=== PATIENT | male | born 1985 | race Caucasian/White ===

== ENCOUNTER 2022-04-07 20:59 | Emergency (ER) | payer MEDICAID ==
[2022-04-07] MEDS ORDERED: Clindamycin Palmitate Solution 75 MG/5 ML 100 ML Bottle PO STA (22:03)
== END 2022-04-07 22:45 | disposition home or self-care (01) ==
LOC: MW.ED 20:59
DX: L03.115 Cellulitis of right lower limb (principal); L73.9 Follicular disorder, unspecified; Z88.2 Allergy status to sulfonamides; Z79.899 Other long term (current) drug therapy
CPT/HCPCS: 99282; A9270; 99283

== ENCOUNTER 2022-10-15 00:29 | Emergency (ER) | payer MEDICAID ==
[2022-10-15] MEDS ORDERED: Lidocaine 1% with EPINEPHrine 1:100,000 10 ML MDV INJECT ONE (00:54)
[2022-10-15] MEDS ORDERED: Diphtheria,Pertussis(Acell),Tetanus Vaccine 0.5 ML Syringe IM ONE (00:54)
== END 2022-10-15 01:30 | disposition home or self-care (01) ==
LOC: MW.ED 00:29
DX: S41.112A Laceration without foreign body of left upper arm, initial encounter (principal); Z88.2 Allergy status to sulfonamides; Z23 Encounter for immunization; X78.1XXA Intentional self-harm by knife, initial encounter
CPT/HCPCS: 12001; 90471; 90715; 99282-25; 99283; J3490

== ENCOUNTER 2022-10-23 06:36 | Emergency (ER) | payer MEDICAID ==
[2022-10-23] MEDS ORDERED: Morphine 4 MG/ML Syringe IVPUSH STA (06:54)
[2022-10-23] MEDS ORDERED: Sodium Chloride 0.9% 1,000 ML IV SCH (07:00)
[2022-10-23 07:26] LABS: CARBON DIOXIDE,CO2 31.1 mmol/L (21.0-32.0); POTASSIUM,K 3.7 mmol/L (3.5-5.1)
== END 2022-10-23 08:44 | disposition home or self-care (01) ==
LOC: MW.ED 06:36
DX: R10.13 Epigastric pain (principal); R10.84 Generalized abdominal pain; R19.7 Diarrhea, unspecified; Z88.2 Allergy status to sulfonamides
CPT/HCPCS: 36415; 80053; 80307; 83605; 83690; 85025; 85610; 87635; 96361; 96374; 99284; J2270; J7030; U0002

== ENCOUNTER 2023-02-05 03:19 | Inpatient (IN) | payer MEDICAID ==
[2023-02-05] MEDS ORDERED: Sodium Chloride 0.9% 1,000 ML IV ONE (03:38)
[2023-02-05] MEDS ORDERED: LORazepam 2 MG/ML SDV IVPUSH ONE (03:38)
[2023-02-05] MEDS ORDERED: cefTRIAXone 1 GM in Sodium Chloride 0.9% 50 ML IV ONE ×2 (03:40→11:52)
[2023-02-05 03:44] LABS: BASOPHILS PERCENT AUTO 0.4 % (0.0-1.5); EOSINOPHILS PERCENT AUTO 0.2 % (0.0-7.0); HEMATOCRIT 40.8 % (38.0-50.0); HEMOGLOBIN 14.9 g/dL (13.0-17.0); LYMPHOCYTES ABSOLUTE AUTO 1.1 K/uL (0.6-2.4); LYMPHOCYTES PERCENT AUTO 9.8 % (16.0-40.0); MEAN CORPUSCULAR HGB CONC 36.5 g/dL (31.0-37.0); MEAN CORPUSCULAR VOLUME 90.5 fL (80.0-98.0); MONOCYTES ABSOLUTE AUTO 1.2 K/uL (0.0-0.8); MONOCYTES PERCENT AUTO 11.1 % (0.0-15.0); NEUTROPHILS ABSOLUTE AUTO 8.7 K/uL (1.4-5.7); NEUTROPHILS PERCENT AUTO 78.5 % (48.0-80.0); NRBC ABSOLUTE 0 K/uL; RED BLOOD CELL COUNT 4.51 M/uL (4.50-5.90); WHITE BLOOD CELL COUNT,WBC 11.01 K/uL (4.0-11.0)
[2023-02-05 03:52] LABS: INR 1.44 (0.86-1.11); PTT,PARTIAL THROMBOPLSTIN TIME 34.9 SEC (23.9-30.7)
[2023-02-05 04:02] LABS: A/G RATIO 0.5 (0.9-1.6); ALBUMIN 2.3 g/dL (3.4-5.0); BILIRUBIN TOTAL 4.5 mg/dL (0.2-1.0); CALCIUM 6.8 mg/dL (8.5-10.1); CARBON DIOXIDE,CO2 23.5 mmol/L (21.0-32.0); EST CRCL DRUG DOSING (CG) 102.12 mL/min; MAGNESIUM 0.8 mg/dL (1.8-2.4); POTASSIUM,K 3.1 mmol/L (3.5-5.1)
[2023-02-05] MEDS ORDERED: Magnesium Sulfate/Water 2 GM in Premix Bag 1 BAG IV ONE ×2 (04:04→18:00)
[2023-02-05 04:07] LABS: LACTIC ACID 2.5 mmol/L (0.4-2.0)
[2023-02-05] MEDS ORDERED: Sodium Chloride 0.9% 250 ML IV ONE (04:15)
[2023-02-05] MEDS ORDERED: Iopamidol 755 MG/ML 500 ML Multipack Bottle IVPUSH ONE (04:15)
[2023-02-05 04:36] LABS: CORONAVIRUS COVID-19 NAA NEGATIVE (NEGATIVE); INFLUENZA A NAA NEGATIVE (NEGATIVE); INFLUENZA B NAA NEGATIVE (NEGATIVE)
[2023-02-05 04:43] LABS: PLATELET COUNT,PLT 98 K/uL (150-400)
[2023-02-05] MEDS: Potassium Chloride 100 ML IV SCH ×2 (04:51→06:49)
[2023-02-05 04:56] LABS: COLOR,URINE DARK YELLOW; GLUCOSE,URINE NEGATIVE (NEGATIVE); KETONES,URINE NEGATIVE (NEGATIVE); LEUKOCYTE ESTERASE,URINE NEGATIVE (NEGATIVE); NITRITE,URINE NEGATIVE (NEGATIVE); OCCULT BLOOD,URINE MODERATE (NEGATIVE); PH,URINE 8.5 (5.0-8.0); PROTEIN,URINE 100 mg/dL (NEGATIVE)
[2023-02-05 05:05] LABS: APPEARANCE,URINE HAZY; BACTERIA,URINE FEW (NEGATIVE); BILIRUBIN,URINE SMALL (NEGATIVE); EPITHELIAL CELLS,URINE RARE (NONE-FEW); WBC,URINE 0-2 (0-5/HPF)
[2023-02-05 05:08] LABS: AMPHETAMINES SCREEN, URINE NEGATIVE (CUTOFF=500); BARBITURATE SCREEN,URINE NEGATIVE (CUTOFF=200); BENZODIAZEPINES SCREEN,URINE PRESUMPTIVE POSITIVE (CUTOFF=150); BUPRENORPHINE SCREEN,URINE NEGATIVE (CUTOFF=10); METHADONE SCREEN, URINE NEGATIVE (CUTOFF=200); METHAMPHETAMINES SCREEN, URINE NEGATIVE (CUTOFF=500); OXYCODONE SCREEN,URINE NEGATIVE (CUT0FF=100); PCP SCREEN,URINE NEGATIVE (CUTOFF=25); PROPOXYPHENE SCREEN,URINE NEGATIVE (CUTOFF=300); THC SCREEN,URINE 20 NG/ML PRESUMPTIVE POSITIVE (CUTOFF=50)
[2023-02-05 05:16] LABS: BODY FLUID TYPE PER
[2023-02-05] MEDS ORDERED: metroNIDAZOLE/Normal Saline 500 MG in Premix Bag 1 BAG IV ONE (05:50)
[2023-02-05 05:58] LABS: APPEARANCE,BODY FLUID CLOUDY; COLOR,BODY FLUID YELLOW; POLYMORPHONUCLEAR, BODY FLUID 40 %; RBC,BODY FLUID 1000 /uL; WBC BODY FLUID 237 /uL
[2023-02-05 05:59] LABS: MONONUCLEAR, BODY FLUID 60 %
[2023-02-05 06:11] LABS: GLUCOSE,BODY FLUID 121 mg/dL; PROTEIN,BODY FLUID 0.6 g/dL
[2023-02-05 06:21] LABS: BODY FLUID TYPE PER
[2023-02-05 06:31] LABS: ALBUMIN,BODY FLUID 0.2 g/dL
[2023-02-05] MEDS ORDERED: Acetaminophen 325 MG Tab PO ONE (07:30)
[2023-02-05 08:13] LABS: A/G RATIO 0.5 (0.9-1.6); ALBUMIN 1.9 g/dL (3.4-5.0); BILIRUBIN TOTAL 3.7 mg/dL (0.2-1.0); CALCIUM 6.5 mg/dL (8.5-10.1); CREATININE 0.9 mg/dL (0.8-1.3); EST CRCL DRUG DOSING (CG) 113.47 mL/min; POTASSIUM,K 3.4 mmol/L (3.5-5.1); PROTEIN TOTAL,TP 5.9 g/dL (6.4-8.2)
[2023-02-05 08:15] LABS: LACTIC ACID 2.1 mmol/L (0.4-2.0)
[2023-02-05] MEDS ORDERED: Calcium Carbonate 500 MG Tab.Chew PO ONE (08:42)
[2023-02-05] MEDS ORDERED: LORazepam 2 MG/ML SDV IVPUSH PRN (11:50)
[2023-02-05] MEDS ORDERED: Folic Acid 1 MG/0.2 ML UD Syringe SUBCUT SCH (12:00)
[2023-02-05] MEDS ORDERED: Thiamine 200 MG/2 ML MDV IVPUSH SCH (12:00)
[2023-02-05 13:07] LABS: CALCIUM 6.6 mg/dL (8.5-10.1); CARBON DIOXIDE,CO2 23.4 mmol/L (21.0-32.0); CREATININE 0.9 mg/dL (0.8-1.3); EST CRCL DRUG DOSING (CG) 113.47 mL/min; MAGNESIUM 1.3 mg/dL (1.8-2.4); PHOSPHORUS 2.7 mg/dL (2.6-4.7); POTASSIUM,K 3.3 mmol/L (3.5-5.1)
[2023-02-05] MEDS: metroNIDAZOLE/Normal Saline 500 MG in Premix Bag 1 BAG IV SCH ×2 (13:18→17:14)
[2023-02-05] MEDS: Thiamine 200 MG/2 ML MDV IVPUSH SCH (14:25)
[2023-02-05] MEDS: Folic Acid 1 MG/0.2 ML UD Syringe SUBCUT SCH (14:26)
[2023-02-05] MEDS ORDERED: oxyCODONE 5 MG Tab PO PRN (17:42)
[2023-02-05] MEDS ORDERED: Potassium Chloride 20 MEQ Tab.ER PO ONE (17:42)
[2023-02-05] MEDS ORDERED: Magnesium Sulfate/Water 2 GM/50 ML Premix Bag IV ONE (17:42)
[2023-02-06] MEDS: metroNIDAZOLE/Normal Saline 500 MG in Premix Bag 1 BAG IV SCH ×5 (00:15→21:02)
[2023-02-06] MEDS: cefTRIAXone 2 GM in Sodium Chloride 0.9% 50 ML IV SCH (02:07)
[2023-02-06 06:09] LABS: INR 1.5 (0.86-1.11)
[2023-02-06 06:20] LABS: A/G RATIO 0.5 (0.9-1.6); ALBUMIN 1.9 g/dL (3.4-5.0); BILIRUBIN TOTAL 3.9 mg/dL (0.2-1.0); CALCIUM 6.6 mg/dL (8.5-10.1); CARBON DIOXIDE,CO2 24.2 mmol/L (21.0-32.0); CREATININE 0.8 mg/dL (0.8-1.3); EST CRCL DRUG DOSING (CG) 127.65 mL/min; MAGNESIUM 1.7 mg/dL (1.8-2.4); PHOSPHORUS 2.3 mg/dL (2.6-4.7); POTASSIUM,K 3.7 mmol/L (3.5-5.1)
[2023-02-06] MEDS ORDERED: Magnesium Sulfate/Water 2 GM in Premix Bag 1 BAG IV ONE (08:08)
[2023-02-06] MEDS: Acetaminophen 325 MG Tab PO PRN ×2 (09:54→17:47)
[2023-02-06] MEDS: Pantoprazole 40 MG in Sodium Chloride 0.9% 10 ML IVPUSH SCH (09:56)
[2023-02-06] MEDS: Thiamine 200 MG/2 ML MDV IVPUSH SCH ×2 (15:42→16:11)
[2023-02-06] MEDS: Folic Acid 1 MG/0.2 ML UD Syringe SUBCUT SCH ×2 (15:42→16:12)
[2023-02-06] MEDS: Phosphorus #1 250 MG Tab PO SCH (17:41)
[2023-02-06 20:00] LABS: BASOPHILS PERCENT AUTO 0.3 % (0.0-1.5); EOSINOPHILS ABSOLUTE AUTO 0.3 K/uL (0.0-0.7); EOSINOPHILS PERCENT AUTO 4.3 % (0.0-7.0); HEMOGLOBIN 12.3 g/dL (13.0-17.0); LYMPHOCYTES ABSOLUTE AUTO 0.9 K/uL (0.6-2.4); LYMPHOCYTES PERCENT AUTO 12.4 % (16.0-40.0); MEAN CORPUSCULAR HEMOGLOBIN 33.2 pg (27.0-32.0); MEAN CORPUSCULAR HGB CONC 36.2 g/dL (31.0-37.0); MEAN CORPUSCULAR VOLUME 91.6 fL (80.0-98.0); MONOCYTES ABSOLUTE AUTO 1.1 K/uL (0.0-0.8); MONOCYTES PERCENT AUTO 14.3 % (0.0-15.0); NEUTROPHILS ABSOLUTE AUTO 5.1 K/uL (1.4-5.7); NEUTROPHILS PERCENT AUTO 68.7 % (48.0-80.0); NRBC ABSOLUTE 0 K/uL; RED BLOOD CELL COUNT 3.71 M/uL (4.50-5.90); WHITE BLOOD CELL COUNT,WBC 7.39 K/uL (4.0-11.0)
[2023-02-06 20:35] LABS: PLATELET COUNT,PLT 45 K/uL (150-400)
[2023-02-07] MEDS: Phosphorus #1 250 MG Tab PO SCH ×4 (00:05→17:30)
[2023-02-07] MEDS: metroNIDAZOLE/Normal Saline 500 MG in Premix Bag 1 BAG IV SCH ×4 (03:27→20:51)
[2023-02-07] MEDS: cefTRIAXone 2 GM in Sodium Chloride 0.9% 50 ML IV SCH (03:27)
[2023-02-07 06:10] LABS: BASOPHILS PERCENT AUTO 0.6 % (0.0-1.5); EOSINOPHILS ABSOLUTE AUTO 0.2 K/uL (0.0-0.7); EOSINOPHILS PERCENT AUTO 3.4 % (0.0-7.0); HEMOGLOBIN 12.4 g/dL (13.0-17.0); LYMPHOCYTES ABSOLUTE AUTO 0.8 K/uL (0.6-2.4); LYMPHOCYTES PERCENT AUTO 11.9 % (16.0-40.0); MEAN CORPUSCULAR HEMOGLOBIN 33.2 pg (27.0-32.0); MEAN CORPUSCULAR HGB CONC 36.5 g/dL (31.0-37.0); MEAN CORPUSCULAR VOLUME 91.2 fL (80.0-98.0); MONOCYTES ABSOLUTE AUTO 0.7 K/uL (0.0-0.8); MONOCYTES PERCENT AUTO 10.7 % (0.0-15.0); NEUTROPHILS ABSOLUTE AUTO 4.8 K/uL (1.4-5.7); NEUTROPHILS PERCENT AUTO 73.4 % (48.0-80.0); NRBC ABSOLUTE 0 K/uL; RED BLOOD CELL COUNT 3.73 M/uL (4.50-5.90); WHITE BLOOD CELL COUNT,WBC 6.47 K/uL (4.0-11.0)
[2023-02-07 06:11] LABS: PLATELET COUNT,PLT 49 K/uL (150-400)
[2023-02-07] MEDS: Pantoprazole 40 MG in Sodium Chloride 0.9% 10 ML IVPUSH SCH ×2 (06:23→06:34)
[2023-02-07 06:32] LABS: A/G RATIO 0.5 (0.9-1.6); ALBUMIN 1.9 g/dL (3.4-5.0); BILIRUBIN TOTAL 3.2 mg/dL (0.2-1.0); CALCIUM 7.2 mg/dL (8.5-10.1); CARBON DIOXIDE,CO2 22.6 mmol/L (21.0-32.0); CREATININE 0.8 mg/dL (0.8-1.3); EST CRCL DRUG DOSING (CG) 127.65 mL/min; MAGNESIUM 1.5 mg/dL (1.8-2.4); PHOSPHORUS 2.5 mg/dL (2.6-4.7); POTASSIUM,K 3.5 mmol/L (3.5-5.1); PROTEIN TOTAL,TP 5.8 g/dL (6.4-8.2)
[2023-02-07] MEDS ORDERED: Magnesium Sulfate/Water 4 GM in Premix Bag 1 BAG IV ONE (07:46)
[2023-02-07] MEDS ORDERED: Furosemide 20 MG Tab PO SCH (09:15)
[2023-02-07] MEDS ORDERED: Spironolactone 25 MG Tab PO SCH (09:15)
[2023-02-07] MEDS: Furosemide 20 MG Tab PO SCH ×2 (09:46→13:59)
[2023-02-07] MEDS: Spironolactone 25 MG Tab PO SCH ×2 (09:47→20:50)
[2023-02-07] MEDS: Thiamine 200 MG/2 ML MDV IVPUSH SCH (15:18)
[2023-02-07] MEDS: Folic Acid 1 MG/0.2 ML UD Syringe SUBCUT SCH (15:19)
[2023-02-07] MEDS: Acetaminophen 325 MG Tab PO PRN (20:51)
[2023-02-08] MEDS: Phosphorus #1 250 MG Tab PO SCH ×3 (00:11→12:29)
[2023-02-08] MEDS: cefTRIAXone 2 GM in Sodium Chloride 0.9% 50 ML IV SCH (02:28)
[2023-02-08] MEDS: metroNIDAZOLE/Normal Saline 500 MG in Premix Bag 1 BAG IV SCH (03:40)
[2023-02-08 05:28] LABS: BASOPHILS PERCENT AUTO 0.2 % (0.0-1.5); EOSINOPHILS ABSOLUTE AUTO 0.2 K/uL (0.0-0.7); EOSINOPHILS PERCENT AUTO 3.7 % (0.0-7.0); HEMATOCRIT 34.7 % (38.0-50.0); HEMOGLOBIN 12.5 g/dL (13.0-17.0); LYMPHOCYTES ABSOLUTE AUTO 0.7 K/uL (0.6-2.4); LYMPHOCYTES PERCENT AUTO 14.1 % (16.0-40.0); MEAN CORPUSCULAR HEMOGLOBIN 32.8 pg (27.0-32.0); MEAN CORPUSCULAR VOLUME 91.1 fL (80.0-98.0); MONOCYTES ABSOLUTE AUTO 0.8 K/uL (0.0-0.8); MONOCYTES PERCENT AUTO 15.7 % (0.0-15.0); NEUTROPHILS ABSOLUTE AUTO 3.4 K/uL (1.4-5.7); NEUTROPHILS PERCENT AUTO 66.3 % (48.0-80.0); NRBC ABSOLUTE 0 K/uL; PLATELET COUNT,PLT 51 K/uL (150-400); RED BLOOD CELL COUNT 3.81 M/uL (4.50-5.90); WHITE BLOOD CELL COUNT,WBC 5.16 K/uL (4.0-11.0)
[2023-02-08 05:44] LABS: INR 1.81 (0.86-1.11)
[2023-02-08 05:53] LABS: A/G RATIO 0.5 (0.9-1.6); ALBUMIN 1.8 g/dL (3.4-5.0); BILIRUBIN TOTAL 2.6 mg/dL (0.2-1.0); CALCIUM 6.9 mg/dL (8.5-10.1); CREATININE 0.8 mg/dL (0.8-1.3); EST CRCL DRUG DOSING (CG) 127.65 mL/min; MAGNESIUM 1.4 mg/dL (1.8-2.4); PHOSPHORUS 3.4 mg/dL (2.6-4.7); POTASSIUM,K 3.1 mmol/L (3.5-5.1); PROTEIN TOTAL,TP 5.7 g/dL (6.4-8.2)
[2023-02-08] MEDS: Pantoprazole 40 MG in Sodium Chloride 0.9% 10 ML IVPUSH SCH (06:34)
[2023-02-08] MEDS ORDERED: Potassium Chloride 20 MEQ Tab.ER PO ONE (08:07)
[2023-02-08] MEDS ORDERED: Magnesium Sulfate/Water 4 GM in Premix Bag 1 BAG IV ONE (08:07)
[2023-02-08] MEDS ORDERED: Potassium Chloride 20 MEQ in Premix Bag 1 BAG IV ONE (08:07)
[2023-02-08] MEDS ORDERED: Sodium Chloride 0.9% 250 ML IV ONE (08:15)
[2023-02-08] MEDS: Furosemide 20 MG Tab PO SCH (08:24)
[2023-02-08] MEDS: Spironolactone 25 MG Tab PO SCH (08:24)
== END 2023-02-08 12:48 | disposition home or self-care (01) | DRG 433 ==
LOC: MW.ED 03:19 → MW.MS 11:50
PROVIDERS: ADMIT Internal Medicine; ATTEND Internal Medicine
PROC: 0W9G3ZZ Drainage of Peritoneal Cavity, Percutaneous Approach (ICD-10-PCS; principal; 2023-02-05)
DX: K70.31 Alcoholic cirrhosis of liver with ascites (principal); F10.139 Alcohol abuse with withdrawal, unspecified; K76.6 Portal hypertension; K80.10 Calculus of gallbladder with chronic cholecystitis without obstruction; E83.39 Other disorders of phosphorus metabolism; E83.51 Hypocalcemia; E83.42 Hypomagnesemia; K57.90 Diverticulosis of intestine, part unspecified, without perforation or abscess without bleeding; E87.6 Hypokalemia; Z79.899 Other long term (current) drug therapy; Z88.2 Allergy status to sulfonamides
CPT/HCPCS: 0240U; 36415; 49082; 49083; 74177; 74177-26; 74181; 74181-26; 76705; 76705-26; 78227; 78227-26; 80048; 80053; 80305-QW; 80307; 81001; 82140; 82330; 82945; 83605; 83690; 83735; 84100; 84157; 85025; 85610; 85730; 87040; 87070; 87075; 87205; 89050; 96361; 96365; 96366; 96367; 96368; 96375; 99222; 99232; 99238; 99285; 99285-25; A9270-GY; A9537; C9113; J0696; J2060; J3411; J3475; J3480; J3490; J7030; J7050; Q9967

== ENCOUNTER 2024-02-24 19:01 | Emergency (ER) | payer OTHER ==
[2024-02-24] MEDS: Sodium Chloride 0.9% 10 ML Syringe FLUSH PRN (19:14)
[2024-02-24] MEDS: Sodium Chloride 0.9% 2.5 ML Syringe FLUSH PRN (19:14)
[2024-02-24 19:23] LABS: BASOPHILS ABSOLUTE AUTO 0.06 K/uL (0.00-0.20); BASOPHILS PERCENT AUTO 0.5 % (0.0-1.0); EOSINOPHILS ABSOLUTE AUTO 0.42 K/uL (0.00-0.45); EOSINOPHILS PERCENT AUTO 3.7 % (0.0-6.0); HEMATOCRIT 26.1 % (42.0-52.0); HEMOGLOBIN 9.2 g/dL (14.0-18.0); IMMATURE GRAN ABSOLUTE AUTO 0.04 K/uL (0.00-0.05); IMMATURE GRAN PERCENT AUTO 0.4 % (0.0-0.4); LYMPHOCYTES ABSOLUTE AUTO 1.97 K/uL (1.00-4.80); LYMPHOCYTES PERCENT AUTO 17.4 % (24.0-44.0); MEAN CORPUSCULAR HEMOGLOBIN 30.5 pg (28.0-32.0); MEAN CORPUSCULAR HGB CONC 35.2 g/dL (32.0-36.0); MEAN CORPUSCULAR VOLUME 86.4 fL (83.0-99.0); MEAN PLATELET VOLUME 8.8 fL (9.4-12.4); MONOCYTES PERCENT AUTO 13.2 % (0.0-8.0); NEUTROPHILS ABSOLUTE AUTO 7.35 K/uL (1.80-7.70); NEUTROPHILS PERCENT AUTO 64.8 % (41.0-71.0); PLATELET COUNT,PLT 151 K/uL (150-400); RED BLOOD CELL COUNT 3.02 M/uL (4.52-5.90); WHITE BLOOD CELL COUNT,WBC 11.34 K/uL (3.9-11.3)
[2024-02-24 19:36] LABS: INR 1.28 (0.86-1.11)
[2024-02-24] MEDS: cefTRIAXone 2 GM in Sodium Chloride 0.9% 50 ML IV ONE (19:37)
[2024-02-24 19:54] LABS: PRO B-TYPE NATRIUR PEPT,BNPPRO 164 pg/mL (0-125)
[2024-02-24] MEDS: Ondansetron 4 MG/2 ML SDV IVPUSH ONE (20:06)
[2024-02-24 20:32] LABS: BODY FLUID TYPE PER
[2024-02-24 20:35] LABS: APPEARANCE,BODY FLUID CLEAR; COLOR,BODY FLUID YELLOW; RBC,BODY FLUID < 3000 /uL; WBC BODY FLUID 20 /uL
[2024-02-24 20:55] LABS: GLUCOSE,BODY FLUID 111 mg/dL
[2024-02-24] MEDS: Prochlorperazine 10 MG/2 ML SDV IVPUSH ONE (21:17)
[2024-02-24 21:57] LABS: A/G RATIO 0.3 (0.9-1.6); ALBUMIN 1.3 g/dL (3.4-5.0); BILIRUBIN TOTAL 1.6 mg/dL (0.2-1.0); CALCIUM 7.1 mg/dL (8.5-10.1); CARBON DIOXIDE,CO2 24.8 mmol/L (21.0-32.0); EST CRCL DRUG DOSING (CG) 52.22 mL/min; POTASSIUM,K 4.4 mmol/L (3.5-5.1); PROTEIN TOTAL,TP 5.6 g/dL (6.4-8.2)
[2024-02-25 01:11] LABS: BASOPHILS ABSOLUTE AUTO 0.03 K/uL (0.00-0.20); BASOPHILS PERCENT AUTO 0.2 % (0.0-1.0); EOSINOPHILS ABSOLUTE AUTO 0.09 K/uL (0.00-0.45); EOSINOPHILS PERCENT AUTO 0.7 % (0.0-6.0); HEMOGLOBIN 8.8 g/dL (14.0-18.0); IMMATURE GRAN ABSOLUTE AUTO 0.06 K/uL (0.00-0.05); IMMATURE GRAN PERCENT AUTO 0.5 % (0.0-0.4); LYMPHOCYTES ABSOLUTE AUTO 1.59 K/uL (1.00-4.80); MEAN CORPUSCULAR HEMOGLOBIN 30.3 pg (28.0-32.0); MEAN CORPUSCULAR HGB CONC 35.2 g/dL (32.0-36.0); MEAN CORPUSCULAR VOLUME 86.2 fL (83.0-99.0); MEAN PLATELET VOLUME 8.8 fL (9.4-12.4); MONOCYTES ABSOLUTE AUTO 1.49 K/uL (0.00-0.80); MONOCYTES PERCENT AUTO 11.3 % (0.0-8.0); NEUTROPHILS ABSOLUTE AUTO 9.95 K/uL (1.80-7.70); NEUTROPHILS PERCENT AUTO 75.3 % (41.0-71.0); PLATELET COUNT,PLT 104 K/uL (150-400); WHITE BLOOD CELL COUNT,WBC 13.21 K/uL (3.9-11.3)
[2024-02-25] MEDS: Octreotide 500 MCG in Normal Saline 500 ML IV SCH (01:52)
[2024-02-25] MEDS: Octreotide 100 MCG/1 ML Amp IV ONE (02:06)
[2024-02-25] MEDS: Prochlorperazine 10 MG/2 ML SDV IVPUSH ONE (02:21)
[2024-02-25] MEDS: Morphine 4 MG/ML Syringe IVPUSH ONE (02:22)
[2024-02-25] MEDS: Iopamidol 755 MG/ML 500 ML Multipack Bottle IVPUSH ONE (08:43)
== END 2024-02-25 02:59 ==
LOC: MW.ED 19:01
DX: R10.84 Generalized abdominal pain (principal); R06.02 Shortness of breath; R11.10 Vomiting, unspecified; N17.9 Acute kidney failure, unspecified; I10 Essential (primary) hypertension; Z86.16 Personal history of COVID-19; Z75.8 Other problems related to medical facilities and other health care; Z79.899 Other long term (current) drug therapy; Z88.2 Allergy status to sulfonamides
CPT/HCPCS: 36415; 36430; 49082; 71045; 74177; 80053; 80307; 82945; 83735; 83880; 84484; 85025; 85610; 86850; 86900; 86901; 86920; 87070; 87075; 87205; 89050; 93005; 96365; 96367; 96375; 96376; 99285; J0696; J0780; J2270; J2354; J2405; J3490; J7040; P9016; Q9967; 93010; 99291

== ENCOUNTER 2024-03-14 21:33 | Observation (INO) | payer OTHER ==
[2024-03-14 21:47] LABS: HEMATOCRIT 27.3 % (42.0-52.0); HEMOGLOBIN 9.3 g/dL (14.0-18.0); MEAN CORPUSCULAR HEMOGLOBIN 31.8 pg (28.0-32.0); MEAN CORPUSCULAR HGB CONC 34.1 g/dL (32.0-36.0); MEAN CORPUSCULAR VOLUME 93.5 fL (83.0-99.0); MEAN PLATELET VOLUME 9.2 fL (9.4-12.4); PLATELET COUNT,PLT 152 K/uL (150-400); RED BLOOD CELL COUNT 2.92 M/uL (4.52-5.90); WHITE BLOOD CELL COUNT,WBC 10.41 K/uL (3.9-11.3)
[2024-03-14] MEDS: Sodium Chloride 0.9% 2.5 ML Syringe FLUSH PRN (21:53)
[2024-03-14] MEDS: Sodium Chloride 0.9% 10 ML Syringe FLUSH PRN (21:54)
[2024-03-14] MEDS: LORazepam 2 MG/ML SDV IM ONE (22:08)
[2024-03-14] MEDS: LORazepam 2 MG/ML SDV IVPUSH ONE (22:17)
[2024-03-14 22:19] LABS: EOSINOPHILS ABSOLUTE MAN 0.73 K/uL (0.00-0.45); EOSINOPHILS PERCENT MAN 7 % (0-6); LYMPHOCYTES ABSOLUTE MAN 1.04 K/uL (1.00-4.80); LYMPHOCYTES PERCENT MAN 10 % (24-44); MONOCYTES ABSOLUTE MAN 1.77 K/uL (0.00-0.80); MONOCYTES PERCENT MAN 17 % (0-8); SEG NEUTROPHILS ABSOLUTE MAN 6.87 K/uL (1.80-7.70); SEG NEUTROPHILS PERCENT MAN 66 % (41-71)
[2024-03-14 22:23] LABS: A/G RATIO 0.3 (0.9-1.6); ALANINE AMINOTRANSFERASE,ALT 15 IU/L (14-63); ALBUMIN 1.3 g/dL (3.4-5.0); ALKALINE PHOSPHATASE 202 U/L (46-116); ASPARTATE AMNIOTRANSFERASE,AST 74 IU/L (15-37); BILIRUBIN TOTAL 1.7 mg/dL (0.2-1.0); BLOOD UREA NITROGEN,BUN 32 mg/dL (7.0-18.0); CALCIUM 8.4 mg/dL (8.5-10.1); CARBON DIOXIDE,CO2 19.2 mmol/L (21.0-32.0); CHLORIDE,CL 101 mmol/L (98-107); CREATININE 2.1 mg/dL (0.8-1.3); EST CRCL DRUG DOSING (CG) 49.73 mL/min; ETHANOL BLOOD MEDICAL <3 mg/dL; GLUCOSE RANDOM 91 mg/dL (74-106); POTASSIUM,K 3.8 mmol/L (3.5-5.1); PROTEIN TOTAL,TP 5.4 g/dL (6.4-8.2); SODIUM,NA 131 mmol/L (136-148)
[2024-03-14 22:24] LABS: ESTIMATED GFR 41 mL/min (>60)
[2024-03-14] MEDS: Acetaminophen 500 MG Tab PO STA (23:26)
[2024-03-15] MEDS ORDERED: LORazepam 2 MG/ML SDV IVPUSH PRN (00:35)
[2024-03-15] MEDS: Ketorolac 30 MG/ML SDV IVPUSH STA (01:01)
[2024-03-15] MEDS: Thiamine 200 MG/2 ML MDV IVPUSH SCH (02:02)
[2024-03-15] MEDS ORDERED: Acetaminophen 325 MG Tab PO PRN (02:23)
[2024-03-15] MEDS: Folic Acid/Vitamin B Complex With C Cap PO SCH (03:16)
[2024-03-15] MEDS: Sodium Chloride 0.9% 500 ML IV SCH (04:56)
[2024-03-15] MEDS: Lactulose Soln 10 GM/15 ML 15 ML UD Cup PO SCH (05:01)
[2024-03-15 05:53] LABS: BASOPHILS ABSOLUTE AUTO 0.04 K/uL (0.00-0.20); BASOPHILS PERCENT AUTO 0.6 % (0.0-1.0); EOSINOPHILS ABSOLUTE AUTO 0.36 K/uL (0.00-0.45); EOSINOPHILS PERCENT AUTO 5.3 % (0.0-6.0); HEMATOCRIT 20.1 % (42.0-52.0); HEMOGLOBIN 6.9 g/dL (14.0-18.0); IMMATURE GRAN ABSOLUTE AUTO 0.04 K/uL (0.00-0.05); IMMATURE GRAN PERCENT AUTO 0.6 % (0.0-0.4); LYMPHOCYTES ABSOLUTE AUTO 0.86 K/uL (1.00-4.80); LYMPHOCYTES PERCENT AUTO 12.6 % (24.0-44.0); MEAN CORPUSCULAR HEMOGLOBIN 31.2 pg (28.0-32.0); MEAN CORPUSCULAR HGB CONC 34.3 g/dL (32.0-36.0); MEAN PLATELET VOLUME 9.3 fL (9.4-12.4); MONOCYTES ABSOLUTE AUTO 1.18 K/uL (0.00-0.80); MONOCYTES PERCENT AUTO 17.3 % (0.0-8.0); NEUTROPHILS ABSOLUTE AUTO 4.36 K/uL (1.80-7.70); NEUTROPHILS PERCENT AUTO 63.6 % (41.0-71.0); PLATELET COUNT,PLT 105 K/uL (150-400); RED BLOOD CELL COUNT 2.21 M/uL (4.52-5.90); WHITE BLOOD CELL COUNT,WBC 6.84 K/uL (3.9-11.3)
[2024-03-15 06:12] LABS: CALCIUM 7.8 mg/dL (8.5-10.1); CARBON DIOXIDE,CO2 20.2 mmol/L (21.0-32.0); CREATININE 1.9 mg/dL (0.8-1.3); EST CRCL DRUG DOSING (CG) 54.96 mL/min; POTASSIUM,K 3.6 mmol/L (3.5-5.1)
[2024-03-15] MEDS ORDERED: NADOLOL 20 MG PO SCH (09:00)
[2024-03-15] MEDS: Spironolactone 25 MG Tab PO SCH (09:17)
== END 2024-03-15 11:40 | disposition home or self-care (01) ==
LOC: MW.ED 21:33 → MW.MS 03-15 00:28
PROVIDERS: ADMIT Internal Medicine; ATTEND Internal Medicine
DX: R55 Syncope and collapse (principal); K70.30 Alcoholic cirrhosis of liver without ascites; I10 Essential (primary) hypertension; F41.9 Anxiety disorder, unspecified; F32.A Depression, unspecified; F17.210 Nicotine dependence, cigarettes, uncomplicated; Z98.890 Other specified postprocedural states; Z88.2 Allergy status to sulfonamides; Z79.899 Other long term (current) drug therapy
CPT/HCPCS: 36415; 70450; 72125; 80048; 80053; 80307; 82947; 83735; 85025; 93005; 96374; 96375; 99285; A9270; J1885; J2060; J3360; J3411; J3490; J7040; 93010; 96361; 96376; 99284; G0378

== ENCOUNTER 2024-04-03 09:20 | Emergency (ER) | payer OTHER ==
[2024-04-03] MEDS: Ketorolac 30 MG/ML SDV IM STA (10:32)
[2024-04-03] MEDS: Orphenadrine 60 MG/2 ML Inj IM STA (10:34)
== END 2024-04-03 11:24 | disposition home or self-care (01) ==
LOC: MW.ED 09:20
DX: M62.838 Other muscle spasm (principal); I10 Essential (primary) hypertension; Z88.2 Allergy status to sulfonamides; Z79.899 Other long term (current) drug therapy; Z86.16 Personal history of COVID-19; Z75.8 Other problems related to medical facilities and other health care
CPT/HCPCS: 96372; 99283; J1885; J2360

== ENCOUNTER 2024-05-19 15:05 | Emergency (ER) | payer OTHER | END 2024-05-19 17:46 | disposition home or self-care (01) | LOC: MW.ED 15:05 | DX: K70.31 Alcoholic cirrhosis of liver with ascites (principal); I10 Essential (primary) hypertension; F17.210 Nicotine dependence, cigarettes, uncomplicated; Z86.16 Personal history of COVID-19; Z79.899 Other long term (current) drug therapy; Z88.2 Allergy status to sulfonamides; Z75.8 Other problems related to medical facilities and other health care | CPT/HCPCS: 49083; 99283; 99283-25 ==

== ENCOUNTER 2024-05-30 16:41 | Emergency (ER) | payer OTHER ==
[2024-05-30 17:18] LABS: BASOPHILS ABSOLUTE AUTO 0.05 K/uL (0.00-0.20); BASOPHILS PERCENT AUTO 0.7 % (0.0-1.0); EOSINOPHILS ABSOLUTE AUTO 0.51 K/uL (0.00-0.45); EOSINOPHILS PERCENT AUTO 6.7 % (0.0-6.0); HEMATOCRIT 20.2 % (42.0-52.0); IMMATURE GRAN ABSOLUTE AUTO 0.05 K/uL (0.00-0.05); IMMATURE GRAN PERCENT AUTO 0.7 % (0.0-0.4); MEAN CORPUSCULAR HEMOGLOBIN 31.3 pg (28.0-32.0); MEAN CORPUSCULAR HGB CONC 34.7 g/dL (32.0-36.0); MEAN CORPUSCULAR VOLUME 90.2 fL (83.0-99.0); MEAN PLATELET VOLUME 9.5 fL (9.4-12.4); MONOCYTES ABSOLUTE AUTO 1.11 K/uL (0.00-0.80); MONOCYTES PERCENT AUTO 14.6 % (0.0-8.0); NEUTROPHILS PERCENT AUTO 56.3 % (41.0-71.0); PLATELET COUNT,PLT 187 K/uL (150-400); RED BLOOD CELL COUNT 2.24 M/uL (4.52-5.90); WHITE BLOOD CELL COUNT,WBC 7.62 K/uL (3.9-11.3)
[2024-05-30 17:30] LABS: INR 1.31 (0.86-1.11)
[2024-05-30 17:57] LABS: A/G RATIO 0.3 (0.9-1.6); ALBUMIN 1.1 g/dL (3.4-5.0); BILIRUBIN TOTAL 0.9 mg/dL (0.2-1.0); CALCIUM 7.6 mg/dL (8.5-10.1); CARBON DIOXIDE,CO2 25.2 mmol/L (21.0-32.0); CREATININE 1.9 mg/dL (0.8-1.3); EST CRCL DRUG DOSING (CG) 54.96 mL/min; POTASSIUM,K 4.4 mmol/L (3.5-5.1); PROTEIN TOTAL,TP 5.4 g/dL (6.4-8.2)
== END 2024-05-31 00:08 | disposition home or self-care (01) ==
LOC: MW.ED 16:41
DX: R07.2 Precordial pain (principal); K70.31 Alcoholic cirrhosis of liver with ascites; D64.9 Anemia, unspecified; I10 Essential (primary) hypertension; F17.210 Nicotine dependence, cigarettes, uncomplicated; Z79.899 Other long term (current) drug therapy
CPT/HCPCS: 36415; 36430; 71045; 80053; 83690; 83880; 84484; 85025; 85610; 86850; 86900; 86901; 86920; 93005; 99285; P9016; 93010; 99283

== ENCOUNTER 2024-07-06 22:36 | Emergency (ER) | payer OTHER ==
[2024-07-06 23:42] LABS: BASOPHILS ABSOLUTE AUTO 0.09 K/uL (0.00-0.20); EOSINOPHILS ABSOLUTE AUTO 0.45 K/uL (0.00-0.45); EOSINOPHILS PERCENT AUTO 5.1 % (0.0-6.0); HEMATOCRIT 18.3 % (42.0-52.0); HEMOGLOBIN 5.9 g/dL (14.0-18.0); IMMATURE GRAN ABSOLUTE AUTO 0.05 K/uL (0.00-0.05); IMMATURE GRAN PERCENT AUTO 0.6 % (0.0-0.4); LYMPHOCYTES ABSOLUTE AUTO 1.82 K/uL (1.00-4.80); LYMPHOCYTES PERCENT AUTO 20.7 % (24.0-44.0); MEAN CORPUSCULAR HEMOGLOBIN 30.6 pg (28.0-32.0); MEAN CORPUSCULAR HGB CONC 32.2 g/dL (32.0-36.0); MEAN CORPUSCULAR VOLUME 94.8 fL (83.0-99.0); MEAN PLATELET VOLUME 10.4 fL (9.4-12.4); MONOCYTES PERCENT AUTO 13.7 % (0.0-8.0); NEUTROPHILS ABSOLUTE AUTO 5.18 K/uL (1.80-7.70); NEUTROPHILS PERCENT AUTO 58.9 % (41.0-71.0); PLATELET COUNT,PLT 101 K/uL (150-400); RED BLOOD CELL COUNT 1.93 M/uL (4.52-5.90); WHITE BLOOD CELL COUNT,WBC 8.79 K/uL (3.9-11.3)
[2024-07-07 00:07] LABS: CORONAVIRUS COVID-19 NAA NEGATIVE (NEGATIVE); INFLUENZA A NAA NEGATIVE (NEGATIVE); INFLUENZA B NAA NEGATIVE (NEGATIVE)
[2024-07-07 00:13] LABS: A/G RATIO 0.4 (0.9-1.6); ALBUMIN 1.5 g/dL (3.4-5.0); BILIRUBIN TOTAL 1.6 mg/dL (0.2-1.0); CALCIUM 7.3 mg/dL (8.5-10.1); CARBON DIOXIDE,CO2 24.7 mmol/L (21.0-32.0); CREATININE 3.1 mg/dL (0.8-1.3); EST CRCL DRUG DOSING (CG) 33.36 mL/min; POTASSIUM,K 3.8 mmol/L (3.5-5.1); PROTEIN TOTAL,TP 5.6 g/dL (6.4-8.2)
[2024-07-07 00:15] LABS: INR 1.47 (0.86-1.11)
[2024-07-07] MEDS: Pantoprazole 80 MG in Sodium Chloride 0.9% 10 ML IVPUSH ONE (00:27)
== END 2024-07-07 02:24 ==
LOC: MW.ED 22:36
DX: N17.9 Acute kidney failure, unspecified (principal); K70.31 Alcoholic cirrhosis of liver with ascites; D64.9 Anemia, unspecified; K92.1 Melena; I10 Essential (primary) hypertension; Z86.16 Personal history of COVID-19; Z79.899 Other long term (current) drug therapy; Z88.2 Allergy status to sulfonamides
CPT/HCPCS: 0240U; 36415; 36430; 71045; 80053; 83690; 84484; 85025; 85610; 86850; 86900; 86901; 86920; 96374; 99285; J2470; J3490; P9016; 93010

== ENCOUNTER 2024-09-01 12:21 | Inpatient (IN) | payer OTHER ==
[2024-09-01] MEDS ORDERED: Desflurane 240 ML Bottle ONE (14:20)
[2024-09-01 16:10] LABS: BASOPHILS ABSOLUTE AUTO 0.07 K/uL (0.00-0.20); BASOPHILS PERCENT AUTO 0.9 % (0.0-1.0); EOSINOPHILS ABSOLUTE AUTO 0.17 K/uL (0.00-0.45); EOSINOPHILS PERCENT AUTO 2.3 % (0.0-6.0); HEMATOCRIT 21.3 % (42.0-52.0); HEMOGLOBIN 7.6 g/dL (14.0-18.0); IMMATURE GRAN ABSOLUTE AUTO 0.02 K/uL (0.00-0.05); IMMATURE GRAN PERCENT AUTO 0.3 % (0.0-0.4); LYMPHOCYTES ABSOLUTE AUTO 1.14 K/uL (1.00-4.80); LYMPHOCYTES PERCENT AUTO 15.4 % (24.0-44.0); MEAN CORPUSCULAR HEMOGLOBIN 31.7 pg (28.0-32.0); MEAN CORPUSCULAR HGB CONC 35.7 g/dL (32.0-36.0); MEAN CORPUSCULAR VOLUME 88.8 fL (83.0-99.0); MEAN PLATELET VOLUME 10.9 fL (9.4-12.4); MONOCYTES ABSOLUTE AUTO 1.05 K/uL (0.00-0.80); MONOCYTES PERCENT AUTO 14.2 % (0.0-8.0); NEUTROPHILS ABSOLUTE AUTO 4.94 K/uL (1.80-7.70); NEUTROPHILS PERCENT AUTO 66.9 % (41.0-71.0); PLATELET COUNT,PLT 62 K/uL (150-400); WHITE BLOOD CELL COUNT,WBC 7.39 K/uL (3.9-11.3)
[2024-09-01 16:27] LABS: INR 1.38 (0.86-1.11)
[2024-09-01 16:43] LABS: ALBUMIN 1.5 g/dL (3.4-5.0); BILIRUBIN TOTAL 2.4 mg/dL (0.2-1.0); CALCIUM 7.9 mg/dL (8.5-10.1); CARBON DIOXIDE,CO2 18.9 mmol/L (21.0-32.0); CREATININE 2.4 mg/dL (0.8-1.3); EST CRCL DRUG DOSING (CG) 43.09 mL/min; POTASSIUM,K 3.9 mmol/L (3.5-5.1); PROTEIN TOTAL,TP 5.8 g/dL (6.4-8.2)
[2024-09-01 16:44] LABS: A/G RATIO 0.4 (0.9-1.6)
[2024-09-01] MEDS: Furosemide 40 MG/4 ML VIAL IVPUSH ONE (17:58)
[2024-09-01 18:25] LABS: APPEARANCE,URINE SLT CLOUDY; COLOR,URINE ORANGE; GLUCOSE,URINE NEGATIVE (NEGATIVE); KETONES,URINE NEGATIVE (NEGATIVE); LEUKOCYTE ESTERASE,URINE TRACE (NEGATIVE); NITRITE,URINE NEGATIVE (NEGATIVE); OCCULT BLOOD,URINE LARGE (NEGATIVE); PROTEIN,URINE >=300 mg/dL (NEGATIVE)
[2024-09-01 18:27] LABS: BILIRUBIN,URINE MODERATE (NEGATIVE)
[2024-09-01 18:36] LABS: EPITHELIAL CELLS,URINE FEW (NONE-FEW); RBC,URINE TOO NUMEROUS TO CT (0-2/HPF)
[2024-09-01 18:37] LABS: BACTERIA,URINE FEW (NEGATIVE)
[2024-09-01 20:26] LABS: BODY FLUID TYPE PER; MONONUCLEAR, BODY FLUID 81.8 %; POLYMORPHONUCLEAR, BODY FLUID 18.2 %
[2024-09-01] MEDS ORDERED: Acetaminophen 325 MG Tab PO PRN (20:29)
[2024-09-01 20:32] LABS: APPEARANCE,BODY FLUID CLEAR; COLOR,BODY FLUID YELLOW; RBC,BODY FLUID < 3000 /uL; WBC BODY FLUID 11 /uL
[2024-09-01] MEDS ORDERED: LORazepam 2 MG/ML SDV IVPUSH PRN (20:34)
[2024-09-01 20:37] LABS: GLUCOSE,BODY FLUID 84 mg/dL; PROTEIN,BODY FLUID 0.7 g/dL
[2024-09-01] MEDS: cefTRIAXone 1 GM in Sodium Chloride 0.9% 50 ML IV SCH (20:59)
[2024-09-01] MEDS: Lactulose Soln 10 GM/15 ML 15 ML UD Cup PO SCH (23:38)
[2024-09-01] MEDS: Thiamine 200 MG/2 ML MDV IVPUSH SCH (23:39)
[2024-09-01] MEDS: Folic Acid 1 MG/0.2 ML UD Syringe IV SCH (23:40)
[2024-09-02 01:08] LABS: HEMATOCRIT 23.7 % (42.0-52.0); HEMOGLOBIN 8.1 g/dL (14.0-18.0)
[2024-09-02 05:46] LABS: BASOPHILS ABSOLUTE AUTO 0.06 K/uL (0.00-0.20); BASOPHILS PERCENT AUTO 0.8 % (0.0-1.0); EOSINOPHILS ABSOLUTE AUTO 0.19 K/uL (0.00-0.45); EOSINOPHILS PERCENT AUTO 2.7 % (0.0-6.0); HEMOGLOBIN 7.9 g/dL (14.0-18.0); IMMATURE GRAN ABSOLUTE AUTO 0.02 K/uL (0.00-0.05); IMMATURE GRAN PERCENT AUTO 0.3 % (0.0-0.4); LYMPHOCYTES ABSOLUTE AUTO 1.28 K/uL (1.00-4.80); LYMPHOCYTES PERCENT AUTO 17.9 % (24.0-44.0); MEAN CORPUSCULAR HEMOGLOBIN 30.6 pg (28.0-32.0); MEAN CORPUSCULAR HGB CONC 34.3 g/dL (32.0-36.0); MEAN CORPUSCULAR VOLUME 89.1 fL (83.0-99.0); MEAN PLATELET VOLUME 12.2 fL (9.4-12.4); MONOCYTES ABSOLUTE AUTO 1.07 K/uL (0.00-0.80); NEUTROPHILS ABSOLUTE AUTO 4.53 K/uL (1.80-7.70); NEUTROPHILS PERCENT AUTO 63.3 % (41.0-71.0); PLATELET COUNT,PLT 63 K/uL (150-400); RED BLOOD CELL COUNT 2.58 M/uL (4.52-5.90); WHITE BLOOD CELL COUNT,WBC 7.15 K/uL (3.9-11.3)
[2024-09-02 06:15] LABS: A/G RATIO 0.3 (0.9-1.6); ALBUMIN 1.4 g/dL (3.4-5.0); BILIRUBIN TOTAL 2.5 mg/dL (0.2-1.0); CALCIUM 7.7 mg/dL (8.5-10.1); CARBON DIOXIDE,CO2 18.9 mmol/L (21.0-32.0); CREATININE 2.7 mg/dL (0.8-1.3); EST CRCL DRUG DOSING (CG) 38.3 mL/min; MAGNESIUM 1.1 mg/dL (1.8-2.4); PHOSPHORUS 4.4 mg/dL (2.6-4.7); POTASSIUM,K 3.4 mmol/L (3.5-5.1); PROTEIN TOTAL,TP 5.7 g/dL (6.4-8.2)
[2024-09-02] MEDS ORDERED: LORazepam 2 MG/ML SDV IVPUSH PRN (07:03)
[2024-09-02] MEDS: Potassium Chloride 20 MEQ Tab.ER PO ONE (09:44)
[2024-09-02] MEDS: Magnesium Sulfate/Water Premix 2 GM in Premix Bag 1 BAG IV ONE (09:45)
[2024-09-02] MEDS ORDERED: NADOLOL 20 MG PO SCH (10:30)
[2024-09-02] MEDS: Albumin 25% 12.5 GM/50 ML BAG IV SCH (12:04)
[2024-09-02] MEDS: Albumin 25% 12.5 GM/50 ML BAG IV ONE (17:38)
[2024-09-02] MEDS ORDERED: Non-Formulary Medication 1 Each (Zolpidem 10 MG Tablet) PO SCH (21:00)
[2024-09-03 05:47] LABS: BASOPHILS ABSOLUTE AUTO 0.07 K/uL (0.00-0.20); BASOPHILS PERCENT AUTO 1.1 % (0.0-1.0); EOSINOPHILS ABSOLUTE AUTO 0.21 K/uL (0.00-0.45); EOSINOPHILS PERCENT AUTO 3.2 % (0.0-6.0); HEMATOCRIT 23.8 % (42.0-52.0); HEMOGLOBIN 8.3 g/dL (14.0-18.0); IMMATURE GRAN ABSOLUTE AUTO 0.02 K/uL (0.00-0.05); IMMATURE GRAN PERCENT AUTO 0.3 % (0.0-0.4); LYMPHOCYTES ABSOLUTE AUTO 1.14 K/uL (1.00-4.80); LYMPHOCYTES PERCENT AUTO 17.6 % (24.0-44.0); MEAN CORPUSCULAR HEMOGLOBIN 30.7 pg (28.0-32.0); MEAN CORPUSCULAR HGB CONC 34.9 g/dL (32.0-36.0); MEAN CORPUSCULAR VOLUME 88.1 fL (83.0-99.0); MEAN PLATELET VOLUME 11.7 fL (9.4-12.4); MONOCYTES ABSOLUTE AUTO 0.88 K/uL (0.00-0.80); MONOCYTES PERCENT AUTO 13.6 % (0.0-8.0); NEUTROPHILS ABSOLUTE AUTO 4.17 K/uL (1.80-7.70); NEUTROPHILS PERCENT AUTO 64.2 % (41.0-71.0); PLATELET COUNT,PLT 74 K/uL (150-400); WHITE BLOOD CELL COUNT,WBC 6.49 K/uL (3.9-11.3)
[2024-09-03 06:19] LABS: A/G RATIO 0.4 (0.9-1.6); ALBUMIN 1.7 g/dL (3.4-5.0); BILIRUBIN TOTAL 1.5 mg/dL (0.2-1.0); CALCIUM 7.7 mg/dL (8.5-10.1); CARBON DIOXIDE,CO2 18.4 mmol/L (21.0-32.0); CREATININE 2.8 mg/dL (0.8-1.3); EST CRCL DRUG DOSING (CG) 36.93 mL/min; POTASSIUM,K 3.7 mmol/L (3.5-5.1); PROTEIN TOTAL,TP 5.9 g/dL (6.4-8.2)
[2024-09-03] MEDS: Magnesium Sulfate/Water Premix 2 GM in Premix Bag 1 BAG IV ONE (12:36)
== END 2024-09-03 16:45 | disposition home or self-care (01) | DRG 433 ==
LOC: MW.ED 12:21 → MW.MS 20:45
PROVIDERS: ADMIT Internal Medicine; ATTEND Internal Medicine
PROC: 0W9G3ZZ Drainage of Peritoneal Cavity, Percutaneous Approach (ICD-10-PCS; principal; 2024-09-01)
PROC: 30233N1 Transfusion of Nonautologous Red Blood Cells into Peripheral Vein, Percutaneous Approach (ICD-10-PCS; 2024-09-01)
DX: K70.31 Alcoholic cirrhosis of liver with ascites (principal); F10.139 Alcohol abuse with withdrawal, unspecified; N39.0 Urinary tract infection, site not specified; N17.9 Acute kidney failure, unspecified; K72.90 Hepatic failure, unspecified without coma; F41.9 Anxiety disorder, unspecified; F32.A Depression, unspecified; F17.210 Nicotine dependence, cigarettes, uncomplicated; F15.90 Other stimulant use, unspecified, uncomplicated; R79.89 Other specified abnormal findings of blood chemistry; D69.6 Thrombocytopenia, unspecified; E88.09 Other disorders of plasma-protein metabolism, not elsewhere classified; N18.32 Chronic kidney disease, stage 3b; D63.1 Anemia in chronic kidney disease; I12.9 Hypertensive chronic kidney disease with stage 1 through stage 4 chronic kidney disease, or unspecified chronic kidney disease; Z66 Do not resuscitate; Z88.2 Allergy status to sulfonamides; Z79.899 Other long term (current) drug therapy; Z87.81 Personal history of (healed) traumatic fracture; Z86.16 Personal history of COVID-19
CPT/HCPCS: 36415; 36430; 71045; 71045-26; 80053; 81001; 82140; 82945; 83690; 83735; 83880; 84100; 84157; 85014; 85018; 85025; 85610; 86850; 86900; 86901; 86920; 87070; 87075; 87086; 87205; 87324; 87428-QW; 89050; 96374; 97110-GP; 97116-GP; 97163-GP; 99285-25; A9270-GY; J0696; J1940; J3411; J3475; J3490; P9016; P9047

== ENCOUNTER 2024-09-04 20:03 | Emergency (ER) | payer OTHER ==
[2024-09-04] MEDS ORDERED: Sodium Chloride 0.9% 10 ML Syringe FLUSH PRN (20:07)
[2024-09-04] MEDS ORDERED: Sodium Chloride 0.9% 2.5 ML Syringe FLUSH PRN (20:07)
[2024-09-04 20:38] LABS: BASOPHILS ABSOLUTE AUTO 0.05 K/uL (0.00-0.20); BASOPHILS PERCENT AUTO 1.1 % (0.0-1.0); EOSINOPHILS ABSOLUTE AUTO 0.15 K/uL (0.00-0.45); EOSINOPHILS PERCENT AUTO 3.4 % (0.0-6.0); HEMATOCRIT 23.2 % (42.0-52.0); IMMATURE GRAN ABSOLUTE AUTO 0.01 K/uL (0.00-0.05); IMMATURE GRAN PERCENT AUTO 0.2 % (0.0-0.4); LYMPHOCYTES ABSOLUTE AUTO 0.67 K/uL (1.00-4.80); LYMPHOCYTES PERCENT AUTO 15.1 % (24.0-44.0); MEAN CORPUSCULAR HEMOGLOBIN 31.3 pg (28.0-32.0); MEAN CORPUSCULAR HGB CONC 34.5 g/dL (32.0-36.0); MEAN CORPUSCULAR VOLUME 90.6 fL (83.0-99.0); MONOCYTES ABSOLUTE AUTO 0.88 K/uL (0.00-0.80); MONOCYTES PERCENT AUTO 19.8 % (0.0-8.0); NEUTROPHILS ABSOLUTE AUTO 2.68 K/uL (1.80-7.70); NEUTROPHILS PERCENT AUTO 60.4 % (41.0-71.0); PLATELET COUNT,PLT 57 K/uL (150-400); RED BLOOD CELL COUNT 2.56 M/uL (4.52-5.90); WHITE BLOOD CELL COUNT,WBC 4.44 K/uL (3.9-11.3)
[2024-09-04 20:50] LABS: INR 1.56 (0.86-1.11)
[2024-09-04 21:12] LABS: A/G RATIO 0.4 (0.9-1.6); ALBUMIN 1.6 g/dL (3.4-5.0); BILIRUBIN TOTAL 1.5 mg/dL (0.2-1.0); CALCIUM 8.1 mg/dL (8.5-10.1); CARBON DIOXIDE,CO2 20.6 mmol/L (21.0-32.0); CREATININE 2.8 mg/dL (0.8-1.3); EST CRCL DRUG DOSING (CG) 36.93 mL/min; POTASSIUM,K 3.5 mmol/L (3.5-5.1); PROTEIN TOTAL,TP 5.9 g/dL (6.4-8.2)
[2024-09-04] MEDS: Aspirin 81 MG Tab.Chew PO ONE (23:25)
== END 2024-09-04 23:32 | disposition left against medical advice (07) ==
LOC: MW.ED 20:03
DX: I21.4 Non-ST elevation (NSTEMI) myocardial infarction (principal); I50.9 Heart failure, unspecified; K72.90 Hepatic failure, unspecified without coma; N19 Unspecified kidney failure; I10 Essential (primary) hypertension; Z88.2 Allergy status to sulfonamides; Z79.899 Other long term (current) drug therapy; Z86.16 Personal history of COVID-19; Z75.8 Other problems related to medical facilities and other health care
CPT/HCPCS: 36415; 71045; 71250; 80053; 83690; 83880; 84484; 85025; 85610; 93005; 99285; A9270

== ENCOUNTER 2024-09-26 13:37 | Emergency (ER) | payer SELFPAY ==
[2024-09-26] MEDS: Haloperidol Lactate 5 MG/ML SDV IM ONE (14:49)
[2024-09-26] MEDS: Pantoprazole 80 MG in Sodium Chloride 0.9% 10 ML IVPUSH ONE (14:58)
[2024-09-26] MEDS: Octreotide 100 MCG/1 ML Amp IV ONE (15:05)
[2024-09-26] MEDS: Lactated Ringers 1,000 ML IV ONE (15:07)
[2024-09-26] MEDS: Octreotide 500 MCG in Sodium Chloride 0.9% 250 ML IV SCH (15:08)
[2024-09-26 15:10] LABS: BASOPHILS ABSOLUTE AUTO 0.04 K/uL (0.00-0.20); BASOPHILS PERCENT AUTO 0.8 % (0.0-1.0); EOSINOPHILS ABSOLUTE AUTO 0.14 K/uL (0.00-0.45); EOSINOPHILS PERCENT AUTO 2.7 % (0.0-6.0); HEMATOCRIT 24.2 % (42.0-52.0); HEMOGLOBIN 8.5 g/dL (14.0-18.0); IMMATURE GRAN ABSOLUTE AUTO 0.03 K/uL (0.00-0.05); IMMATURE GRAN PERCENT AUTO 0.6 % (0.0-0.4); LYMPHOCYTES ABSOLUTE AUTO 0.91 K/uL (1.00-4.80); LYMPHOCYTES PERCENT AUTO 17.7 % (24.0-44.0); MEAN CORPUSCULAR HEMOGLOBIN 31.3 pg (28.0-32.0); MEAN CORPUSCULAR HGB CONC 35.1 g/dL (32.0-36.0); MEAN PLATELET VOLUME 11.5 fL (9.4-12.4); MONOCYTES ABSOLUTE AUTO 0.77 K/uL (0.00-0.80); NEUTROPHILS ABSOLUTE AUTO 3.26 K/uL (1.80-7.70); NEUTROPHILS PERCENT AUTO 63.2 % (41.0-71.0); PLATELET COUNT,PLT 59 K/uL (150-400); RED BLOOD CELL COUNT 2.72 M/uL (4.52-5.90); WHITE BLOOD CELL COUNT,WBC 5.15 K/uL (3.9-11.3)
[2024-09-26 15:17] LABS: INR 1.32 (0.86-1.11); PTT,PARTIAL THROMBOPLSTIN TIME 31.3 SEC (23.9-30.7)
[2024-09-26 15:23] LABS: COLOR,URINE YELLOW; GLUCOSE,URINE NEGATIVE (NEGATIVE); KETONES,URINE NEGATIVE (NEGATIVE); LEUKOCYTE ESTERASE,URINE NEGATIVE (NEGATIVE); NITRITE,URINE NEGATIVE (NEGATIVE); OCCULT BLOOD,URINE LARGE (NEGATIVE); PROTEIN,URINE >=300 mg/dL (NEGATIVE); UROBILINOGEN,URINE 0.2 EU/dL (<2.0)
[2024-09-26 15:30] LABS: AMPHETAMINES SCREEN, URINE NEGATIVE (CUTOFF=500); BARBITURATE SCREEN,URINE NEGATIVE (CUTOFF=200); BENZODIAZEPINES SCREEN,URINE NEGATIVE (CUTOFF=150); BUPRENORPHINE SCREEN,URINE NEGATIVE (CUTOFF=10); METHADONE SCREEN, URINE NEGATIVE (CUTOFF=200); METHAMPHETAMINES SCREEN, URINE NEGATIVE (CUTOFF=500); OXYCODONE SCREEN,URINE NEGATIVE (CUT0FF=100); PCP SCREEN,URINE NEGATIVE (CUTOFF=25); THC SCREEN,URINE 20 NG/ML NEGATIVE (CUTOFF=50)
[2024-09-26 15:32] LABS: BILIRUBIN,URINE SMALL (NEGATIVE)
[2024-09-26] MEDS: Iopamidol 755 MG/ML 500 ML Multipack Bottle IVPUSH STA (15:34)
[2024-09-26 15:41] LABS: APPEARANCE,URINE SLT CLOUDY; BACTERIA,URINE 2+ (NEGATIVE); EPITHELIAL CELLS,URINE FEW (NONE-FEW); MUCUS,URINE LIGHT (NONE-MOD); RBC,URINE 50-75 (0-2/HPF); WBC,URINE 0-3 (0-5/HPF)
[2024-09-26 16:01] LABS: A/G RATIO 0.3 (0.9-1.6); ALBUMIN 1.3 g/dL (3.4-5.0); BILIRUBIN TOTAL 1.3 mg/dL (0.2-1.0); CALCIUM 7.5 mg/dL (8.5-10.1); CREATININE 2.6 mg/dL (0.8-1.3); EST CRCL DRUG DOSING (CG) 39.78 mL/min; MAGNESIUM 1.3 mg/dL (1.8-2.4); POTASSIUM,K 3.7 mmol/L (3.5-5.1); PROTEIN TOTAL,TP 6.2 g/dL (6.4-8.2)
[2024-09-26] MEDS: Magnesium Sulfate/Water Premix 4 GM in Premix Bag 1 BAG IV ONE (17:28)
== END 2024-09-26 17:40 ==
LOC: MW.ED 13:37
DX: K92.2 Gastrointestinal hemorrhage, unspecified (principal); K70.31 Alcoholic cirrhosis of liver with ascites; F10.10 Alcohol abuse, uncomplicated; I10 Essential (primary) hypertension; Z88.2 Allergy status to sulfonamides; Z79.899 Other long term (current) drug therapy
CPT/HCPCS: 36415; 71045; 74177; 80053; 80305; 81001; 82272; 83605; 83690; 83735; 85025; 85610; 85730; 96365; 96366; 96372; 96375; 96376; 99285; J1630; J2354; J2470; J3475; J7050; J7120; Q9967

== ENCOUNTER 2024-11-08 14:40 | Emergency (ER) | payer SELFPAY ==
[2024-11-08] MEDS ORDERED: Sodium Chloride 0.9% 10 ML Syringe FLUSH PRN (14:52)
[2024-11-08] MEDS ORDERED: Sodium Chloride 0.9% 2.5 ML Syringe FLUSH PRN (14:52)
[2024-11-08 15:34] LABS: BASOPHILS ABSOLUTE AUTO 0.03 K/uL (0.00-0.20); BASOPHILS PERCENT AUTO 0.4 % (0.0-1.0); EOSINOPHILS ABSOLUTE AUTO 0.04 K/uL (0.00-0.45); EOSINOPHILS PERCENT AUTO 0.6 % (0.0-6.0); HEMATOCRIT 18.7 % (42.0-52.0); HEMOGLOBIN 6.8 g/dL (14.0-18.0); IMMATURE GRAN ABSOLUTE AUTO 0.03 K/uL (0.00-0.05); IMMATURE GRAN PERCENT AUTO 0.4 % (0.0-0.4); LYMPHOCYTES ABSOLUTE AUTO 0.46 K/uL (1.00-4.80); LYMPHOCYTES PERCENT AUTO 6.4 % (24.0-44.0); MEAN CORPUSCULAR HEMOGLOBIN 32.5 pg (28.0-32.0); MEAN CORPUSCULAR HGB CONC 36.4 g/dL (32.0-36.0); MEAN CORPUSCULAR VOLUME 89.5 fL (83.0-99.0); MEAN PLATELET VOLUME 9.6 fL (9.4-12.4); MONOCYTES ABSOLUTE AUTO 1.06 K/uL (0.00-0.80); MONOCYTES PERCENT AUTO 14.7 % (0.0-8.0); NEUTROPHILS ABSOLUTE AUTO 5.58 K/uL (1.80-7.70); NEUTROPHILS PERCENT AUTO 77.5 % (41.0-71.0); PLATELET COUNT,PLT 88 K/uL (150-400); RED BLOOD CELL COUNT 2.09 M/uL (4.52-5.90)
[2024-11-08 15:50] LABS: INR 1.28 (0.86-1.11)
[2024-11-08 16:05] LABS: LACTIC ACID 3.6 mmol/L (0.4-2.0)
[2024-11-08 16:06] LABS: A/G RATIO 0.2 (0.9-1.6); ALBUMIN 1.2 g/dL (3.4-5.0); BILIRUBIN TOTAL 1.5 mg/dL (0.2-1.0); CALCIUM 7.4 mg/dL (8.5-10.1); CARBON DIOXIDE,CO2 15.3 mmol/L (21.0-32.0); CREATININE 2.9 mg/dL (0.8-1.3); EST CRCL DRUG DOSING (CG) 35.66 mL/min; MAGNESIUM 1.4 mg/dL (1.8-2.4); POTASSIUM,K 3.3 mmol/L (3.5-5.1); PROTEIN TOTAL,TP 6.2 g/dL (6.4-8.2)
[2024-11-08] MEDS: Furosemide 40 MG/4 ML VIAL IVPUSH ONE (16:16)
[2024-11-08] MEDS: Pantoprazole 80 MG in Sodium Chloride 0.9% 10 ML IVPUSH ONE (18:09)
[2024-11-08] MEDS: cefTRIAXone 2 GM in Sodium Chloride 0.9% 50 ML IV ONE ×2 (18:27→18:28)
[2024-11-08] MEDS: Octreotide 500 MCG in Sodium Chloride 0.9% 250 ML IV SCH (18:28)
== END 2024-11-08 20:18 ==
LOC: MW.ED 14:40
DX: K92.2 Gastrointestinal hemorrhage, unspecified (principal); D64.9 Anemia, unspecified; K76.7 Hepatorenal syndrome; K70.31 Alcoholic cirrhosis of liver with ascites; F10.10 Alcohol abuse, uncomplicated; I13.0 Hypertensive heart and chronic kidney disease with heart failure and stage 1 through stage 4 chronic kidney disease, or unspecified chronic kidney disease; I50.9 Heart failure, unspecified; N18.9 Chronic kidney disease, unspecified; F17.200 Nicotine dependence, unspecified, uncomplicated; Z86.16 Personal history of COVID-19; Z88.2 Allergy status to sulfonamides; Z79.899 Other long term (current) drug therapy; Z75.8 Other problems related to medical facilities and other health care; Y90.7 Blood alcohol level of 200-239 mg/100 ml
CPT/HCPCS: 36415; 36430; 70450; 70486; 71045; 71250; 74176; 80053; 80307; 82140; 83605; 83690; 83735; 83880; 84484; 85025; 85610; 86850; 86900; 86901; 86920; 87040; 93005; 96365; 96367; 96375; 99285; J0696; J1940; J2354; J2470; J3490; P9016; 93010